=== PATIENT | female | born 1980 | race Caucasian/White ===

== ENCOUNTER → 2017-05-02 | Outpatient (CLI) | payer BC ==
--- NOTE | 2017-05-02 14:33 | MAM ---
EXAM DESCRIPTION: 3D Screening BILATERAL CLINICAL HISTORY: 36 yearsFemaleSCREENING no complaints. Remote family history of ovarian cancer. No breast cancer. Premenopausal.. COMPARISON: Baseline study at this facility.. No prior reports available. TECHNIQUE: Bilateral CC and MLO projection full-field images, 3-D tomosynthesis digital mammographic technique. Also bilateral synthesized CC/ MLO full-field images. CAD not utilized. FINDINGS: The breast parenchymal density pattern is: Scattered areas of fibroglandular density. No skin thickening or nipple retraction bilateral axillary lymph nodes. No focal, stellate mass or density, focal asymmetry , and no suspicious microcalcifications bilaterally. IMPRESSION: BI-RADS CATEGORY: 2 - BENIGN FINDINGS. FOLLOW UP: Routine digital bilateral screening, one year interval from April 2017. Written communication explaining the IMPRESSION and follow-up, will be mailed to the patient and referring health care provider. According to the [employer], yearly mammograms are recommended starting at age 40 and continuing as long as a woman is in good health. Any breast change noted on a breast self-exam should be reported promptly to the patient's healthcare provider. Breast MRI is recommended for women with an approximately 20-25% or greater lifetime risk of breast cancer, including women with a strong family history of breast or ovarian cancer and women who have been treated for Hodgkin's disease. A negative mammographic report should not delay tissue diagnosis in patients with significant clinical history or physical findings. Extremely dense breast tissue limits the sensitivity of digital mammography. Electronically signed by: Stu York MD 05/02/2017 2:32 PM CDT
== END | disposition home or self-care (01) ==
LOC: MAMMO 13:31
PROVIDERS: ATTEND Obstetrics & Gynecology
DX: Z12.31 Encounter for screening mammogram for malignant neoplasm of breast (principal)
CPT/HCPCS: 77063; G0202

== ENCOUNTER → 2018-04-27 | Outpatient (CLI) | payer BC ==
--- NOTE | 2018-04-28 10:27 | US ---
EXAM DESCRIPTION: Breast,Right: Ultrasound CLINICAL HISTORY: 37 yearsFemaleBREAST LUMP. Noticed in the past week. Minimal tenderness. COMPARISON: Digital diagnostic mammogram right breast same visit. TECHNIQUE: Transcutaneous scanning of the right breast utilizing farrar-scale and Doppler modes. Scanning performed by the yarn wrapper and Dr. York. FINDINGS: Scanning at the 500 clock position of the right breast 4 cm from the nipple, where skin marker located on palpable lesion. Circumscribed hypoechoic mass measuring 7.5 x 9.5 mm, surrounded by homogeneous hyperechoic tissue which measures 2.0 x 1.4 cm. No abnormal vascularity. Parallel orientation. Minimal posterior enhancement features. No simple cyst, large calcifications, no skin discoloration, or parenchymal edema. IMPRESSION: This is most likely a sebaceous cyst or obstructed hair follicle. ASSESSMENT: 1. Bi-Rads Category 3: Probably Benign Findings. 2. Please refer to bilateral diagnostic breast tomosynthesis examination and report on this visit. The FINDINGS and the FOLLOW-UP plan were reviewed in person with the patient after the examination. Written communication explaining the IMPRESSION and FOLLOW-UP will be mailed to the patient and referring care provider. Electronically signed by: Stu York MD 04/28/2018 10:25 AM CDT
--- NOTE | 2018-04-28 11:21 | MAM ---
EXAM DESCRIPTION: 3D Diagnostic, Bilateral: Digital Mammography CLINICAL HISTORY: 37 yearsFemaleABN MAMMO . Palpable mass on the anterior right breast lower inner quadrant. No personal history of breast cancer. Remote family history of ovarian cancer and breast cancer. No childbirth. Premenopausal. No HRT. Lifetime risk of developing breast cancer (Tyrer-Cuzick model) is 11.2 %. COMPARISON: Bilateral screening digital breast tomosynthesis 05/02/2017.. Targeted right breast ultrasound to follow. . TECHNIQUE: Bilateral CC LM MLO projection full-field images, digital mammographic tomosynthesis technique. Bilateral full-field digital 2-D MLO images. CAD not utilized. FINDINGS: The breast parenchymal density pattern is: Scattered areas of fibroglandular density. No skin thickening or nipple retraction skin marker is noted at the lower inner quadrant of the anterior third of the right breast at the 4:00 position, approximately 4 cm from the nipple. Adjacent to the skin marker is a small mass density with lobulated borders similar density to the adjacent fibroglandular tissues. Not associated with calcifications. No new focal, stellate mass or density, focal asymmetry , and no suspicious microcalcifications left breast. ULTRASOUND: Scanning at the 500 clock position of the right breast 4 cm from the nipple, where skin marker located on palpable lesion. Circumscribed hypoechoic mass measuring 7.5 x 9.5 mm, surrounded by homogeneous hyperechoic tissue which measures 2.0 x 1.4 cm. No abnormal vascularity. Parallel orientation. Minimal posterior enhancement features. No simple cyst, large calcifications, no skin discoloration, or parenchymal edema. IMPRESSION: Most likely a benign subcutaneous skin lesion. ASSESSMENT: BI-RADS CATEGORY: 3 - PROBABLY BENIGN. Management: Short interval (6-month) digital mammography and targeted right breast ultrasound.. The FINDINGS and the FOLLOW-UP plan were reviewed in person with the patient after the examination. Written communication explaining the IMPRESSION and FOLLOW-UP will be mailed to the patient and referring care provider. Electronically signed by: Stu York MD 04/28/2018 11:19 AM CDT
== END ==
LOC: MAMMO 10:51
PROVIDERS: ATTEND Obstetrics & Gynecology
DX: N63.0 Unspecified lump in unspecified breast (principal)
CPT/HCPCS: 76641; 77066; G0279

== ENCOUNTER 2019-04-22 15:31 | Emergency (ER) | payer BC ==
[2019-04-22] MEDS ORDERED: SODIUM CHLORIDE 0.9% (FLUSH) 10 ML SYG IV PRN (15:49)
[2019-04-22] MEDS ORDERED: DICYCLOMINE HCL INJ 20 MG/2 ML AMP IM ONE (15:50)
--- NOTE | 2019-04-22 15:53 | ED.PDOC ---
History of Present Illness - General Time Seen by Provider: 04/22/19 15:49 - History of Present Illness Initial Comments: 38 y/o female is here with c/o 5/10 sharp , non radiating RLQ pain for few hours , no nausea or vomiting or diarrhea or constipation or vaginal discharge , no urinary symptoms , no fever or chills Review of Systems - Review of Systems Constitutional: States: no symptoms reported EENTM: States: no symptoms reported Respiratory: States: no symptoms reported Cardiology: States: no symptoms reported Gastrointestinal/Abdominal: States: see HPI Genitourinary: States: no symptoms reported Musculoskeletal: States: no symptoms reported Skin: States: no symptoms reported Neurological: States: no symptoms reported Endocrine: States: no symptoms reported Hematologic/Lymphatic: States: no symptoms reported All other Systems: Reviewed and Negative Family Medical History - Family History Mother Family History: Unknown Living Status: Unknown Physical Exam - Physical Exam General Appearance: Alert, Comfortable, Well Groomed, Well Hydrated, Well Nourished Eyes, Ears, Nose, Throat Exam: PERRL/EOMI Neck: non-tender, full range of motion, supple, normal inspection Respiratory: chest non-tender, lungs clear, normal breath sounds, no respiratory distress Cardiovascular/Chest: normal peripheral pulses, regular rate, rhythm, no edema Gastrointestinal/Abdominal: soft, no organomegaly, no pulsatile mass, tenderness - RLQ tenderness , no guarding Back Exam: normal inspection, no CVA tenderness, no vertebral tenderness Extremity: normal range of motion, non-tender, normal inspection Skin Exam: normal color, warm/dry Lymphatic: no adenopathy Progress - Progress Progress: 04/22/19 17:11 Pt still having RLQ pain : CT scan is normal : will treat emperically for PID - Results/Orders Results/Orders: 04/22/19 15:49 Sodium Chloride 0.9% (Flush) [Saline Flush Syringe] 10 ml IV PRN PRN 04/22/19 15:50 Hold Metformin x 48Hrs [id number] 04/22/19 16:00 EKG STAT Laboratory Results - last 24 hr 04/22/19 04/22/19 04/22/19 15:49 16:00 16:14 WBC 12.0 H RBC 4.57 Hgb 13.3 Hct 39.6 MCV 86.8 MCH 29.2 MCHC 33.7 RDW 13.6 Plt Count 415 H MPV 8.2 Absolute Neuts (auto) 7.20 H Absolute Lymphs (auto) 3.60 H Absolute Monos (auto) 0.60 Absolute Eos (auto) 0.60 H Absolute Basos (auto) 0.10 Neutrophils % 59.7 Lymphocytes % 29.6 Monocytes % 4.8 Eosinophils % 5.3 H Basophils % 0.6 Sodium Potassium Chloride Carbon Dioxide Anion Gap BUN Creatinine BUN/Creatinine Ratio Random Glucose Serum Osmolality Calcium Lipase Serum HCG, Qual Negative Urine Color Yellow Urine Appearance Clear Urine pH 6.0 Ur Specific [place] <= 1.005 Urine Protein Negative Urine Glucose (UA) Negative Urine Ketones Negative Urine Blood Negative Urine Nitrite Negative Urine Bilirubin Negative Urine Urobilinogen 0.2 Ur Leukocyte Esterase Negative Urine RBC 0 Urine WBC 0 Ur Epithelial Cells 5-10 Urine Bacteria 0 04/22/19 16:14 WBC RBC Hgb Hct MCV MCH MCHC RDW Plt Count MPV Absolute Neuts (auto) Absolute Lymphs (auto) Absolute Monos (auto) Absolute Eos (auto) Absolute Basos (auto) Neutrophils % Lymphocytes % Monocytes % Eosinophils % Basophils % Sodium 138 Potassium 3.6 Chloride 102 Carbon Dioxide 25 Anion Gap 14.6 BUN 19 H Creatinine 0.40 L BUN/Creatinine Ratio 47.5 H Random Glucose 112 H Serum Osmolality 278.7 Calcium 9.2 Lipase 27 Serum HCG, Qual Urine Color Urine Appearance Urine pH Ur Specific [place] Urine Protein Urine Glucose (UA) Urine Ketones Urine Blood Urine Nitrite Urine Bilirubin Urine Urobilinogen Ur Leukocyte Esterase Urine RBC Urine WBC Ur Epithelial Cells Urine Bacteria - EKG/XRAY/CT EKG: no ST T wave changes CT: Abdomen : Normal Departure - Departure Clinical Impression: Abdominal pain Qualifiers: Abdominal location: right lower quadrant Qualified Code(s): R10.31 - Right lower quadrant pain Time of Disposition: 17:06 Disposition: Discharge to Home or Self Care Condition: Good Instructions: DI for Abdominal Pain-Adult Diet: resume usual diet Activity: increase activity as tolerated Referrals: Neo Rangel MD [Primary Care Provider] - 1-2 Weeks Prescriptions: Dicyclomine HCl [Bentyl] 20 mg PO Q6HR PRN #20 tab PRN Reason: Pain Home Medications: Ambulatory Orders Dicyclomine HCl [Bentyl] 20 mg PO Q6HR PRN #20 tab 04/22/19 Phentermine HCl 37.5 mg PO DAILY 04/22/19
--- NOTE | 2019-04-22 16:52 | CT ---
EXAM DESCRIPTION: Abdomen/Pelvis w/Contrast CLINICAL HISTORY: 38 years Female RLQ pain COMPARISON: None. TECHNIQUE: Contiguous axial images obtained through the abdomen and pelvis following IV contrast. Reformatted images obtained. This exam was performed according to our department optimization program which includes automated exposure control, adjustment of the mA and/or kv according to patient size and/or use of iterative reconstruction technique. FINDINGS: The liver appears unremarkable. The spleen and pancreas appear unremarkable. No adrenal masses. The kidneys appear unremarkable. No hydronephrosis. The gallbladder is visualized. No aneurysmal dilatation of the aorta. No bowel obstruction. The appendix is normal in caliber without wall thickening or surrounding inflammatory changes.. No significant free fluid noted. IMPRESSION: No acute abnormality is identified. Specifically no evidence of appendicitis Electronically signed by: Monique Christiansen MD 04/22/2019 4:51 PM CDT
[2019-04-22] MEDS ORDERED: AZITHROMYCIN 250 MG TAB PO ONE (17:08)
[2019-04-22] MEDS ORDERED: KETOROLAC TROMETHAMINE INJ 30 MG/ML VIAL IM ONE (17:13)
[2019-04-22] MEDS ORDERED: LIDOCAINE 1% 2 ML VIAL INJ ONE (17:14)
[2019-04-22 17:38] VITALS: BP 100/71; TEMP 97.8; O2SAT 99
== END 2019-04-22 17:36 | disposition home or self-care (01) ==
LOC: ER 15:31
DX: R10.31 Right lower quadrant pain (principal)
CPT/HCPCS: 36415; 74177; 80048; 81001; 83690; 84703; 85025; 93005; J0500; J0696; J1885; Q0144

== ENCOUNTER 2019-04-29 00:26 | Emergency (ER) | payer BC ==
[2019-04-29] MEDS ORDERED: valACYclovir 500 MG TAB PO ONE (00:54)
[2019-04-29] MEDS ORDERED: ONDANSETRON ODT 8 MG TAB SL ONE (00:54)
[2019-04-29] MEDS ORDERED: HYDROcodone 5MG/APAP 325MG 1 EA TAB PO ONE (00:54)
--- NOTE | 2019-04-29 00:59 | ED.PDOC ---
History of Present Illness - General Chief Complaint: Back Pain or Injury Stated Complaint: right back pain x's 1 week Time Seen by Provider: 04/29/19 00:29 Source: patient, RN notes reviewed, Vital Signs reviewed, old records Exam Limitations: no limitations - History of Present Illness Initial Comments: Pt is a 38y/o WF who presents with worsening right low back pain, now with itching and "it feels like it's on fire". Pt denies any back trauma. Pt seen in ED about 6 days ago and dx with back strain and started on meds. The pt noted a rash to the right low back extending along her buttock in a dermatomal pattern. Pt denies f/c/n/v/d. Timing/Duration: 1 week Severity: moderate Improving Factors: medication - ultram helping some Worsening Factors: nothing Allergies/Adverse Reactions: Allergies NO KNOWN ALLERGY Allergy (Verified 04/29/19 00:49) Home Medications: Ambulatory Orders Dicyclomine HCl [Bentyl] 20 mg PO Q6HR PRN #20 tab 04/22/19 Phentermine HCl 37.5 mg PO DAILY 04/22/19 Tramadol HCl [Ultram] 50 mg PO Q6HRS #20 tab 04/29/19 Valacyclovir HCl 1 gm PO TID #30 tab 04/29/19 Review of Systems - Review of Systems Constitutional: Denies: chills, fever, malaise EENTM: States: no symptoms reported Respiratory: States: no symptoms reported Cardiology: States: no symptoms reported Gastrointestinal/Abdominal: States: no symptoms reported Genitourinary: States: no symptoms reported Musculoskeletal: States: back pain Skin: States: lesions, rash - vesicular. Neurological: States: no symptoms reported Endocrine: States: no symptoms reported Hematologic/Lymphatic: States: no symptoms reported All other Systems: Reviewed and Negative Past Medical History (General) - Patient Medical History Hx Seizures: No Hx Stroke: No Hx Dementia: No Hx Asthma: No Hx of COPD: No Hx Cardiac Disorders: No Hx Congestive Heart Failure: No Hx Pacemaker: No Hx Hypertension: No Hx Thyroid Disease: No Hx Diabetes: No Hx Gastroesophageal Reflux: No Hx Renal Disease: No Hx Cancer: No Hx of HIV: No Hx Hepatitis C: No Hx MRSA: No Surgical History: no surgical history - Vaccination History Hx Influenza Vaccination: No - Social History Hx Tobacco Use: No Family Medical History - Family History Mother Family History: Unknown Living Status: Unknown Physical Exam - Physical Exam Eye Exam: bilateral normal Ears, Nose, Throat: hearing grossly normal, normal ENT inspection, normal pharynx Neck: non-tender, full range of motion, supple, normal inspection Respiratory: chest non-tender, lungs clear, normal breath sounds, no respiratory distress, no accessory muscle use, respiratory distress Cardiovascular/Chest: normal peripheral pulses, regular rate, rhythm, no edema, no gallop, no murmur Gastrointestinal/Abdominal: normal bowel sounds, non tender, soft Back Exam: no CVA tenderness, no vertebral tenderness, other - Pt with a vesicular rash in a dermatomal pattern along right low back. Extremity: normal range of motion, non-tender, normal inspection, no pedal edema, no calf tenderness Neurologic: team psychologist II-XII nml as tested, no motor/sensory deficits, alert, normal mood/affect, oriented x 3 Skin Exam: warm/dry, rash - vesicular in a dermatomal pattern along right low back and onto buttock Progress - Progress Progress: 04/29/19 01:36 Pt resting comfortably. Pt given pain medicine and Valacyclovir. Plan d/c home at this time. Pt voices understanding and agreement with the plan of care. Gomez Carpenter M.D. #[id number] Departure - Departure Clinical Impression: Herpes zoster Qualifiers: Herpes zoster complications: without complications Qualified Code(s): B02.9 - Zoster without complications Time of Disposition: 01:38 Disposition: Discharge to Home or Self Care Departure Forms: ED Discharge - Pt. Copy, Patient Portal Self Enrollment Instructions: Felipe (DC) Referrals: Neo Rangel MD [Primary Care Provider] - 1-2 Weeks Prescriptions: Tramadol HCl [Ultram] 50 mg PO Q6HRS #20 tab Valacyclovir HCl 1 gm PO TID #30 tab Home Medications: Ambulatory Orders Dicyclomine HCl [Bentyl] 20 mg PO Q6HR PRN #20 tab 04/22/19 Phentermine HCl 37.5 mg PO DAILY 04/22/19 Tramadol HCl [Ultram] 50 mg PO Q6HRS #20 tab 04/29/19 Valacyclovir HCl 1 gm PO TID #30 tab 04/29/19
[2019-04-29 01:31] VITALS: O2SAT 98
[2019-04-29 01:53] VITALS: BP 135/83; TEMP 97.4
== END 2019-04-29 01:50 | disposition home or self-care (01) ==
LOC: ER 00:26
DX: B02.9 Zoster without complications (principal)